=== PATIENT | male | born 1990 | race Caucasian/White ===

== ENCOUNTER 2018-01-30 04:11 | Emergency (ER) | payer OTHER ==
[~2018-01-30] VITALS: Ht 188 cm; Wt 72.6 kg
[2018-01-30] MEDS ORDERED: NOHOMEMEDICATIONS (04:32)
[2018-01-30] MEDS ORDERED: MOBIC15 MG PO (05:27)
[2018-01-30 05:49] VITALS: BP 118/79
== END 2018-01-30 05:40 | disposition home or self-care (01) ==
LOC: ER 04:11
DX: J02.9 Acute pharyngitis, unspecified (principal); R50.9 Fever, unspecified